=== PATIENT | female | born 1950 | race Caucasian/White ===

== ENCOUNTER → 2017-05-16 | Outpatient (CLI) | payer BC ==
--- NOTE | 2017-05-20 15:28 | MAMMOGRAPHY REPORT ---
BILATERAL DIGITAL SCREENING MAMMOGRAM TOMOSYNTHESIS WITH CAD: 05/16/2017 CLINICAL HISTORY: Routine screening. Patient has no complaints. TECHNIQUE: Breast tomosynthesis in addition to standard 2D mammography was performed. Current study was also evaluated with a Computer Aided Detection (CAD) system. COMPARISON: Comparison is made to exams dated: 05/15/2016 mammogram, 01/15/2016 mammogram, 01/11/2015 mammogram, 01/10/2014 mammogram, 01/05/2013 mammogram, and 01/01/2012 mammogram - [facility]. BREAST COMPOSITION: There are scattered areas of fibroglandular density in both breasts. FINDINGS: No suspicious masses, calcifications, or areas of architectural distortion are noted in ei ther breast. There has been no significant interval change compared to prior exams. IMPRESSION: ACR BI-RADS CATEGORY 1: NEGATIVE There is no mammographic evidence of malignancy. A 1 year screening mammogram is recommended. The pa tient will receive written notification of the results. Approximately 10% of breast cancers are not detected with mammography. A negative mammographic report should not delay biopsy if a clinically suggestive mass is present. Nohemi Phipps M.D. /:05/16/2017 15:24:37 Steamer Blocker: Cynthia ELDRIDGE(Reji)(Bettie)([place]), [facility] letter sent: Normal 1/2 BI-RADS Code: ACR BI-RADS Category 1: Negative
== END | disposition home or self-care (01) ==
LOC: C.MAMM 09:28
PROVIDERS: ATTEND Family Medicine
DX: Z12.31 Encounter for screening mammogram for malignant neoplasm of breast (principal)